=== PATIENT | female | born 1980 | race Caucasian/White ===

== ENCOUNTER 2017-10-25 19:41 | Emergency (ER) | payer OTHER ==
[~2017-10-25] VITALS: Ht 157.5 cm; Wt 81.3 kg
[2017-10-25 19:50] VITALS: Ht 157.5 cm; Wt 81.3 kg
[2017-10-25 21:44] LABS: ALBUMIN 3.5 g/dL (3.4-5.0); BILIRUBIN TOTAL 0.31 mg/dL (0.20-1.00); CALCIUM 8.6 mg/dL (8.5-10.1); CARBON DIOXIDE 32.5 mmol/L (21-32); TOTAL PROTEIN, SERUM 7.7 g/dL (6.4-8.2)
[2017-10-25 21:46] LABS: CREATININE SERUM 10.8 mg/dL (0.6-1.0)
[2017-10-25 21:48] LABS: BASOPHIL % 0.8 % (0-2); PLATELET COUNT 324 x10^3mcL (130-400)
[2017-10-25 21:50] LABS: RED CELL DISTRIBUTION WIDTH 18.3 % (11.5-14.5)
[2017-10-25 23:11] VITALS: BP 160/86
== END 2017-10-25 23:11 | disposition home or self-care (01) ==
LOC: ED 19:41
PROVIDERS: Emergency Medicine
DX: E11.22 Type 2 diabetes mellitus with diabetic chronic kidney disease (principal); N18.9 Chronic kidney disease, unspecified; K21.9 Gastro-esophageal reflux disease without esophagitis; Z88.8 Allergy status to other drugs, medicaments and biological substances
CPT/HCPCS: 83880; C9113; J2765

== ENCOUNTER 2017-11-07 14:29 | Inpatient (IN) | payer OTHER ==
[~2017-11-07] VITALS: Ht 157.5 cm; Wt 78.6 kg
[2017-11-07 15:13] VITALS: Ht 157.5 cm; Wt 78.6 kg
[2017-11-07 16:12] LABS: BASOPHIL % 0.6 % (0-2); PLATELET COUNT 288 x10^3mcL (130-400)
[2017-11-07 16:19] LABS: RED CELL DISTRIBUTION WIDTH 18.5 % (11.5-14.5)
[2017-11-07 16:32] LABS: BILIRUBIN TOTAL 0.4 mg/dL (0.20-1.00); CALCIUM 8.7 mg/dL (8.5-10.1); POTASSIUM SERUM 3.6 mmol/L (3.5-5.1)
[2017-11-07 16:34] LABS: CHOLESTEROL/HDL RATIO 2.5; CREATININE SERUM 8.6 mg/dL (0.6-1.0); TOTAL PROTEIN, SERUM 8.3 g/dL (6.4-8.2)
[2017-11-07 16:36] LABS: FREE T4 1.39 ng/dL (0.76-1.46); T4(THYROXINE) 12.1 ug/dL (4.7-13.3)
[2017-11-07 16:44] LABS: T3 TOTAL 0.89 ng/mL
[2017-11-07] MEDS ORDERED: LOSARTAN POTASS25 M1 (18:38)
[2017-11-07] MEDS ORDERED: DSS250 MG (18:38)
[2017-11-07] MEDS ORDERED: OSTERA TABLET1 EACH (18:38)
[2017-11-07] MEDS ORDERED: TOPROL XL25 MG PO (18:39)
[2017-11-07] MEDS ORDERED: ASPIR 8181 MG (18:39)
[2017-11-07] MEDS ORDERED: LASIX20 MG (18:39)
[2017-11-07] MEDS ORDERED: HYDRALAZINE HCL25 MG PO (18:40)
[2017-11-07] MEDS ORDERED: CALCIUM ACETAT667 M3 PO (18:40)
[2017-11-07] MEDS ORDERED: CHLORTHALIDONE25 MG PO (18:40)
[2017-11-07 18:41] LABS: MAGNESIUM 2.8 mg/dL (1.8-2.4); PHOSPHOROUS 5.2 mg/dL (2.5-4.9)
[2017-11-07 19:53] VITALS: BP 177/87
[2017-11-07] MEDS ORDERED: NIFEDIPINE ER90 M2 PO (22:01)
[2017-11-08 00:33] VITALS: BP 143/68
[2017-11-08 03:47] LABS: UA SPECIFIC GRAVITY 1.015 (1.005-1.035); microscopic required? YES; urine erythrocyte 3+ (NEGATIVE)
[2017-11-08 03:58] LABS: AMPHETAMINE QUAL UR NONE DETECTED (See below)
[2017-11-08 05:57] VITALS: BP 158/79
[2017-11-08 06:56] LABS: BASOPHIL % 0.9 % (0-2); PLATELET COUNT 284 x10^3mcL (130-400)
[2017-11-08 07:03] LABS: RED CELL DISTRIBUTION WIDTH 18.3 % (11.5-14.5)
[2017-11-08 07:08] LABS: MAGNESIUM 3.1 mg/dL (1.8-2.4); PHOSPHOROUS 5.9 mg/dL (2.5-4.9)
[2017-11-08 07:37] LABS: CALCIUM 8.1 mg/dL (8.5-10.1); CARBON DIOXIDE 26.7 mmol/L (21-32)
[2017-11-08 07:47] LABS: CREATININE SERUM 9.8 mg/dL (0.6-1.0)
[2017-11-08 13:06] VITALS: BP 164/75
[2017-11-08 17:09] VITALS: BP 105/59
[2017-11-08 20:12] VITALS: BP 151/77
[2017-11-09 05:14] VITALS: BP 172/77
[2017-11-09 06:41] LABS: BASOPHIL % 0.8 % (0-2); PLATELET COUNT 239 x10^3mcL (130-400)
[2017-11-09 06:47] LABS: RED CELL DISTRIBUTION WIDTH 17.9 % (11.5-14.5)
[2017-11-09 07:05] LABS: CALCIUM 7.8 mg/dL (8.5-10.1); CARBON DIOXIDE 24.7 mmol/L (21-32); MAGNESIUM 3.1 mg/dL (1.8-2.4); PHOSPHOROUS 7.1 mg/dL (2.5-4.9); POTASSIUM SERUM 4.5 mmol/L (3.5-5.1)
[2017-11-09 08:48] VITALS: BP 176/80
[2017-11-09 13:35] VITALS: BP 135/70
[2017-11-09 17:12] VITALS: BP 154/78
[2017-11-09 20:00] VITALS: BP 172/82
[2017-11-10 06:22] VITALS: BP 188/89
[2017-11-10 06:51] LABS: BASOPHIL % 0.9 % (0-2); PLATELET COUNT 265 x10^3mcL (130-400)
[2017-11-10 06:55] LABS: RED CELL DISTRIBUTION WIDTH 17.9 % (11.5-14.5)
[2017-11-10 07:04] LABS: CALCIUM 8.8 mg/dL (8.5-10.1); CARBON DIOXIDE 28.8 mmol/L (21-32); POTASSIUM SERUM 4.2 mmol/L (3.5-5.1)
[2017-11-10 07:08] LABS: CREATININE SERUM 8.9 mg/dL (0.6-1.0)
[2017-11-10 09:18] VITALS: BP 156/76
[2017-11-10 12:44] VITALS: BP 159/79
[2017-11-10 17:10] VITALS: BP 163/71
[2017-11-10 21:30] VITALS: BP 183/89
[2017-11-11 05:37] VITALS: BP 187/92
[2017-11-11 07:39] VITALS: BP 191/97
[2017-11-11 11:45] VITALS: BP 188/91
[2017-11-11 18:38] VITALS: BP 105/56
[2017-11-11 20:36] VITALS: BP 165/84
[2017-11-12 04:59] VITALS: BP 160/84
[2017-11-12 09:48] VITALS: BP 194/86
[2017-11-12 10:18] VITALS: BP 129/66
[2017-11-12] MEDS ORDERED: TRA100 PO (11:34)
[2017-11-12] MEDS ORDERED: APR50 PO (11:34)
[2017-11-12] MEDS ORDERED: NOR10T PO (11:35)
[2017-11-12] MEDS ORDERED: COZ50 PO (11:35)
[2017-11-12 12:05] VITALS: BP 129/66
[2017-11-12 12:52] VITALS: BP 124/70
== END 2017-11-12 14:09 | disposition home or self-care (01) | DRG 347 ==
LOC: ED 14:29 → DU 17:47 → MU 17:47 → DU 19:34 → MU 19:37 → DU 19:40
PROVIDERS: Family Medicine; Internal Medicine; Specialist
PROC: 5A1D70Z Performance of Urinary Filtration, Intermittent, Less than 6 Hours Per Day (ICD-10-PCS; principal; 2017-11-09)
PROC: 5A1D70Z Performance of Urinary Filtration, Intermittent, Less than 6 Hours Per Day (ICD-10-PCS; 2017-11-11)
DX: M48.56XA Collapsed vertebra, not elsewhere classified, lumbar region, initial encounter for fracture (principal); D68.69 Other thrombophilia; E11.22 Type 2 diabetes mellitus with diabetic chronic kidney disease; E11.621 Type 2 diabetes mellitus with foot ulcer; I12.0 Hypertensive chronic kidney disease with stage 5 chronic kidney disease or end stage renal disease; E83.39 Other disorders of phosphorus metabolism; E83.41 Hypermagnesemia; N18.6 End stage renal disease; E78.5 Hyperlipidemia, unspecified; H54.8 Legal blindness, as defined in USA; E78.00 Pure hypercholesterolemia, unspecified; E87.70 Fluid overload, unspecified; L97.529 Non-pressure chronic ulcer of other part of left foot with unspecified severity; L84 Corns and callosities; M20.5X2 Other deformities of toe(s) (acquired), left foot; M20.5X1 Other deformities of toe(s) (acquired), right foot; D63.1 Anemia in chronic kidney disease; I16.0 Hypertensive urgency; K57.90 Diverticulosis of intestine, part unspecified, without perforation or abscess without bleeding; R31.9 Hematuria, unspecified; Z99.2 Dependence on renal dialysis; Z79.82 Long term (current) use of aspirin; Z68.30 Body mass index [BMI] 30.0-30.9, adult; Z79.899 Other long term (current) drug therapy; Z88.8 Allergy status to other drugs, medicaments and biological substances; Z79.4 Long term (current) use of insulin
CPT/HCPCS: 72072; 83880; 84439; J0696; J0885-EC; J1815; J1885; J2270; J2405; J3010; J3490; J7030; Q0092; Q0162

== ENCOUNTER 2017-11-19 05:17 | Emergency (ER) | payer OTHER ==
[~2017-11-19] VITALS: Ht 157.5 cm; Wt 75.7 kg
[~2017-11-19 05:17] MED LIST: APR50 PO; ASPIR 8181 MG; CALCIUM ACETAT667 M3 PO; CHLORTHALIDONE25 MG PO; COZ50 PO; DSS250 MG; HYDRALAZINE HCL25 MG PO; LASIX20 MG; LOSARTAN POTASS25 M1; NIFEDIPINE ER90 M2 PO; NOR10T PO; OSTERA TABLET1 EACH; TOPROL XL25 MG PO; TRA100 PO
[2017-11-19 05:35] VITALS: Ht 157.5 cm; Wt 75.7 kg
[2017-11-19 07:23] LABS: PLATELET COUNT 257 x10^3mcL (130-400)
[2017-11-19 07:24] LABS: RED CELL DISTRIBUTION WIDTH 16.8 % (11.5-14.5)
[2017-11-19 07:51] LABS: ALBUMIN 3.6 g/dL (3.4-5.0); BILIRUBIN TOTAL 0.35 mg/dL (0.20-1.00); CALCIUM 9.5 mg/dL (8.5-10.1); CARBON DIOXIDE 28.5 mmol/L (21-32); POTASSIUM SERUM 4.2 mmol/L (3.5-5.1); TOTAL PROTEIN, SERUM 7.6 g/dL (6.4-8.2)
[2017-11-19 07:54] LABS: CREATININE SERUM 8.1 mg/dL (0.6-1.0)
[2017-11-19 08:39] VITALS: BP 158/89
== END 2017-11-19 10:01 | disposition home or self-care (01) ==
LOC: ED 05:17
PROVIDERS: Emergency Medicine
DX: R10.12 Left upper quadrant pain (principal); I12.9 Hypertensive chronic kidney disease with stage 1 through stage 4 chronic kidney disease, or unspecified chronic kidney disease; N18.9 Chronic kidney disease, unspecified; Z88.8 Allergy status to other drugs, medicaments and biological substances
CPT/HCPCS: 36415; J1885; Q0162

== ENCOUNTER 2018-01-09 17:06 | Inpatient (IN) | payer OTHER ==
[~2018-01-09] VITALS: Ht 157.5 cm; Wt 68.0 kg
[2018-01-09 17:26] VITALS: Ht 157.5 cm; Wt 68.0 kg
[2018-01-09 18:40] LABS: BASOPHIL % 0.7 % (0-2); PLATELET COUNT 257 x10^3mcL (130-400)
[2018-01-09 18:42] LABS: RED CELL DISTRIBUTION WIDTH 18.9 % (11.5-14.5)
[2018-01-09 18:51] LABS: BILIRUBIN TOTAL 0.4 mg/dL (0.20-1.00); CALCIUM 9.8 mg/dL (8.5-10.1); CARBON DIOXIDE 22.5 mmol/L (21-32); POTASSIUM SERUM 5.3 mmol/L (3.5-5.1); TOTAL PROTEIN, SERUM 8.2 g/dL (6.4-8.2)
[2018-01-09 18:55] LABS: CREATININE SERUM 10.8 mg/dL (0.6-1.0)
[2018-01-09 19:58] LABS: MAGNESIUM 2.7 mg/dL (1.8-2.4); PHOSPHOROUS 3.8 mg/dL (2.5-4.9)
[2018-01-09 19:59] LABS: CHOLESTEROL/HDL RATIO 3.3
[2018-01-09 20:03] LABS: T3 TOTAL 0.66 ng/mL
[2018-01-09 20:07] LABS: FREE T4 1.09 ng/dL (0.76-1.46); FREE THYROXINE INDEX 2.6 ug/dL (1.4-4.5)
[2018-01-09 21:16] VITALS: BP 201/92
[2018-01-09 23:32] VITALS: BP 183/81
[2018-01-10 05:20] VITALS: BP 197/95
[2018-01-10 06:27] LABS: BASOPHIL % 1.2 % (0-2); PLATELET COUNT 252 x10^3mcL (130-400)
[2018-01-10 06:40] LABS: CARBON DIOXIDE 26.6 mmol/L (21-32); MAGNESIUM 2.8 mg/dL (1.8-2.4); POTASSIUM SERUM 5.1 mmol/L (3.5-5.1)
[2018-01-10 06:54] LABS: CREATININE SERUM 11.6 mg/dL (0.6-1.0)
[2018-01-10 07:09] LABS: RED CELL DISTRIBUTION WIDTH 17.3 % (11.5-14.5)
[2018-01-10 08:49] VITALS: BP 214/92
[2018-01-10 12:08] VITALS: BP 223/104
[2018-01-10 15:30] VITALS: BP 194/89
[2018-01-10 20:55] VITALS: BP 184/88
[2018-01-11] VITALS (9 sets, daily range): BP systolic 147–197; BP diastolic 67–95
[2018-01-11 06:51] LABS: BASOPHIL % 0.9 % (0-2); PLATELET COUNT 255 x10^3mcL (130-400)
[2018-01-11 06:55] LABS: CALCIUM 8.8 mg/dL (8.5-10.1); CARBON DIOXIDE 26.2 mmol/L (21-32); MAGNESIUM 2.3 mg/dL (1.8-2.4); PHOSPHOROUS 4.9 mg/dL (2.5-4.9); POTASSIUM SERUM 4.3 mmol/L (3.5-5.1)
[2018-01-11 07:02] LABS: CREATININE SERUM 7.9 mg/dL (0.6-1.0)
[2018-01-11 07:06] LABS: RED CELL DISTRIBUTION WIDTH 19.4 % (11.5-14.5)
[2018-01-12] VITALS (7 sets, daily range): BP systolic 156–179; BP diastolic 73–104
[2018-01-12 06:03] LABS: BASOPHIL % 0.5 % (0-2); PLATELET COUNT 254 x10^3mcL (130-400)
[2018-01-12 06:33] LABS: CALCIUM 8.2 mg/dL (8.5-10.1); CARBON DIOXIDE 31.1 mmol/L (21-32)
[2018-01-12 06:35] LABS: CREATININE SERUM 5.3 mg/dL (0.6-1.0)
[2018-01-12 07:10] LABS: RED CELL DISTRIBUTION WIDTH 18.8 % (11.5-14.5)
[2018-01-13 05:37] VITALS: BP 165/79
[2018-01-13 08:55] VITALS: BP 186/85
[2018-01-13 15:53] VITALS: BP 151/71
[2018-01-13] MEDS ORDERED: TRA100 PO (16:22)
[2018-01-13] MEDS ORDERED: LIPI20 PO (16:22)
[2018-01-13] MEDS ORDERED: ADA30 PO (16:22)
[2018-01-13] MEDS ORDERED: CLINDAMYCIN HC300 MG PO (16:25)
[2018-01-13 17:56] VITALS: BP 151/71
== END 2018-01-13 17:50 | disposition home or self-care (01) | DRG 241 ==
LOC: ED 17:06 → MU 19:19 → DU 19:19
PROVIDERS: Emergency Medicine; Family Medicine; Internal Medicine; Internal Medicine Gastroenterology
PROC: 5A1D70Z Performance of Urinary Filtration, Intermittent, Less than 6 Hours Per Day (ICD-10-PCS; 2018-01-10)
PROC: 0DB68ZX Excision of Stomach, Via Natural or Artificial Opening Endoscopic, Diagnostic (ICD-10-PCS; 2018-01-11 07:30)
PROC: 5A1D70Z Performance of Urinary Filtration, Intermittent, Less than 6 Hours Per Day (ICD-10-PCS; principal; 2018-01-13)
DX: K29.00 Acute gastritis without bleeding (principal); N17.0 Acute kidney failure with tubular necrosis; I13.2 Hypertensive heart and chronic kidney disease with heart failure and with stage 5 chronic kidney disease, or end stage renal disease; E44.0 Moderate protein-calorie malnutrition; E83.41 Hypermagnesemia; E11.21 Type 2 diabetes mellitus with diabetic nephropathy; I27.20 Pulmonary hypertension, unspecified; E11.319 Type 2 diabetes mellitus with unspecified diabetic retinopathy without macular edema; I16.0 Hypertensive urgency; E11.22 Type 2 diabetes mellitus with diabetic chronic kidney disease; I12.0 Hypertensive chronic kidney disease with stage 5 chronic kidney disease or end stage renal disease; K29.80 Duodenitis without bleeding; N18.6 End stage renal disease; E87.5 Hyperkalemia; F41.9 Anxiety disorder, unspecified; E11.65 Type 2 diabetes mellitus with hyperglycemia; Z99.2 Dependence on renal dialysis; Z79.84 Long term (current) use of oral hypoglycemic drugs; E78.5 Hyperlipidemia, unspecified; L03.114 Cellulitis of left upper limb; R07.9 Chest pain, unspecified; I80.8 Phlebitis and thrombophlebitis of other sites; I16.1 Hypertensive emergency; E87.70 Fluid overload, unspecified; K59.09 Other constipation; G89.29 Other chronic pain; M54.5 Low back pain; D63.1 Anemia in chronic kidney disease; I50.9 Heart failure, unspecified; K29.70 Gastritis, unspecified, without bleeding; Z68.30 Body mass index [BMI] 30.0-30.9, adult
CPT/HCPCS: 43235; 82962; 83880; 84439; 97116-GP; 97530-GP; A4719; J0360; J1200; J1610; J1644; J1885; J2250; J2270; J2310; J2405; J2550; J2765; J3010; J3370; J3490; J7030; Q0092

== ENCOUNTER 2018-02-07 17:06 | Inpatient (IN) | payer OTHER ==
[~2018-02-07] VITALS: Ht 157.5 cm; Wt 78.2 kg
[~2018-02-07 17:06] MED LIST changes: +ADA30 PO; +CLINDAMYCIN HC300 MG PO; +LIPI20 PO
[2018-02-07 19:27] LABS: BILIRUBIN TOTAL 0.55 mg/dL (0.20-1.00); CARBON DIOXIDE 30.9 mmol/L (21-32); TOTAL PROTEIN, SERUM 7.7 g/dL (6.4-8.2)
[2018-02-07 19:47] LABS: CREATININE SERUM 11.6 mg/dL (0.6-1.0); POTASSIUM SERUM 6.1 mmol/L (3.5-5.1)
[2018-02-07 20:34] LABS: BASOPHIL % 0.7 % (0-2); PLATELET COUNT 223 x10^3mcL (130-400)
[2018-02-07 20:36] LABS: RED CELL DISTRIBUTION WIDTH 17.9 % (11.5-14.5)
[2018-02-07] MEDS ORDERED: ROC1I (21:43)
[2018-02-07] MEDS ORDERED: PROCARDIA XL90 MG PO (21:48)
[2018-02-07] MEDS ORDERED: CATAPRES0.1 MG PO (21:48)
[2018-02-07] MEDS ORDERED: LABETALOL HYDR300 MG PO (21:48)
[2018-02-07] MEDS ORDERED: REG5 PO (21:49)
[2018-02-07] MEDS ORDERED: LOSARTAN POTAS100 M1 PO (21:49)
[2018-02-07] MEDS ORDERED: COLACE100 MG PO (21:50)
[2018-02-07] MEDS ORDERED: PHOS PO (21:50)
[2018-02-07] MEDS ORDERED: NEU300 PO (21:50)
[2018-02-07] MEDS ORDERED: TRAZODONE50 M1 PO (21:51)
[2018-02-07 21:55] LABS: MAGNESIUM 2.5 mg/dL (1.8-2.4); PHOSPHOROUS 5.7 mg/dL (2.5-4.9)
[2018-02-07 22:01] LABS: T3 TOTAL 1.15 ng/mL
[2018-02-07 22:03] LABS: CHOLESTEROL/HDL RATIO 1.8
[2018-02-07 22:30] LABS: FREE T4 1.2 ng/dL (0.76-1.46); FREE THYROXINE INDEX 3.1 ug/dL (1.4-4.5); T4(THYROXINE) 8.5 ug/dL (4.7-13.3)
[2018-02-07 22:40] VITALS: BP 170/88
[2018-02-07 22:43] VITALS: Ht 157.5 cm; Wt 78.2 kg
[2018-02-08 00:31] VITALS: BP 167/85
[2018-02-08 05:52] VITALS: BP 162/79
[2018-02-08 07:08] LABS: CARBON DIOXIDE 30.6 mmol/L (21-32); POTASSIUM SERUM 5.5 mmol/L (3.5-5.1)
[2018-02-08 07:09] LABS: CREATININE SERUM 12.6 mg/dL (0.6-1.0)
[2018-02-08 07:22] LABS: BASOPHIL % 1.1 % (0-2); PLATELET COUNT 223 x10^3mcL (130-400)
[2018-02-08 09:17] VITALS: BP 154/77
[2018-02-08 15:52] VITALS: BP 179/87
[2018-02-08 21:24] VITALS: BP 196/88
[2018-02-09 03:18] VITALS: BP 188/92
[2018-02-09 05:11] VITALS: BP 167/85
[2018-02-09 06:21] LABS: BASOPHIL % 0.8 % (0-2); PLATELET COUNT 206 x10^3mcL (130-400)
[2018-02-09 06:35] LABS: RED CELL DISTRIBUTION WIDTH 17.6 % (11.5-14.5)
[2018-02-09 06:52] LABS: CALCIUM 8.7 mg/dL (8.5-10.1); CARBON DIOXIDE 30.7 mmol/L (21-32); MAGNESIUM 2.1 mg/dL (1.8-2.4); PHOSPHOROUS 6.1 mg/dL (2.5-4.9); POTASSIUM SERUM 4.7 mmol/L (3.5-5.1)
[2018-02-09 06:58] LABS: CREATININE SERUM 9.1 mg/dL (0.6-1.0)
[2018-02-09 09:40] VITALS: BP 188/89
[2018-02-09 10:56] VITALS: BP 163/77
[2018-02-09 17:19] VITALS: BP 172/84
[2018-02-09 21:25] VITALS: BP 148/85
[2018-02-10 06:03] VITALS: BP 167/80
[2018-02-10 07:01] LABS: BASOPHIL % 1.1 % (0-2); PLATELET COUNT 193 x10^3mcL (130-400)
[2018-02-10 07:05] LABS: RED CELL DISTRIBUTION WIDTH 17.3 % (11.5-14.5)
[2018-02-10 07:14] LABS: CALCIUM 8.4 mg/dL (8.5-10.1); CARBON DIOXIDE 30.8 mmol/L (21-32); MAGNESIUM 2.3 mg/dL (1.8-2.4); PHOSPHOROUS 7.2 mg/dL (2.5-4.9); POTASSIUM SERUM 5.3 mmol/L (3.5-5.1)
[2018-02-10 07:25] LABS: CREATININE SERUM 11.9 mg/dL (0.6-1.0)
[2018-02-10] MEDS ORDERED: PER5 PO (08:49)
[2018-02-10 08:59] VITALS: BP 173/82
[2018-02-10 10:22] VITALS: BP 165/83
[2018-02-10 13:43] VITALS: BP 171/88
[2018-02-10 14:02] VITALS: BP 140/72
[2018-02-10 17:30] VITALS: BP 134/72
== END 2018-02-10 20:15 | disposition home or self-care (01) | DRG 347 ==
LOC: ED 17:06 → MU 21:19 → DU 21:19 → MU 22:22 → DU 02-09 16:10
PROVIDERS: Emergency Medicine; Family Medicine; General Practice
PROC: 5A1D70Z Performance of Urinary Filtration, Intermittent, Less than 6 Hours Per Day (ICD-10-PCS; principal; 2018-02-08)
PROC: 5A1D70Z Performance of Urinary Filtration, Intermittent, Less than 6 Hours Per Day (ICD-10-PCS; 2018-02-10)
DX: M54.9 Dorsalgia, unspecified (principal); N17.0 Acute kidney failure with tubular necrosis; H54.8 Legal blindness, as defined in USA; E11.21 Type 2 diabetes mellitus with diabetic nephropathy; I12.0 Hypertensive chronic kidney disease with stage 5 chronic kidney disease or end stage renal disease; N18.6 End stage renal disease; E11.22 Type 2 diabetes mellitus with diabetic chronic kidney disease; E11.65 Type 2 diabetes mellitus with hyperglycemia; E83.41 Hypermagnesemia; E78.5 Hyperlipidemia, unspecified; E83.39 Other disorders of phosphorus metabolism; E87.5 Hyperkalemia; Z99.2 Dependence on renal dialysis; Z68.31 Body mass index [BMI] 31.0-31.9, adult; E78.00 Pure hypercholesterolemia, unspecified; I16.0 Hypertensive urgency; G89.29 Other chronic pain; D63.1 Anemia in chronic kidney disease; E11.319 Type 2 diabetes mellitus with unspecified diabetic retinopathy without macular edema; R07.89 Other chest pain
CPT/HCPCS: 82962; 83880; 84439; 97110-GP; 97116-GP; J0885-EC; J1644; J1815; J2270; J2405; J2550; J7030; Q0092

== ENCOUNTER 2018-08-19 14:04 | Emergency (ER) | payer OTHER ==
[~2018-08-19] VITALS: Ht 157.5 cm; Wt 73.0 kg
[~2018-08-19 14:04] MED LIST changes: +CATAPRES0.1 MG PO; +COLACE100 MG PO; +LABETALOL HYDR300 MG PO; +LOSARTAN POTAS100 M1 PO; +NEU300 PO; +PER5 PO; +PHOS PO; +PROCARDIA XL90 MG PO; +REG5 PO; +ROC1I; +TRAZODONE50 M1 PO
[2018-08-19 14:09] VITALS: Ht 157.5 cm; Wt 73.0 kg
[2018-08-19 17:16] VITALS: BP 187/92
== END 2018-08-19 17:17 | disposition home or self-care (01) ==
LOC: ED 14:04
DX: L03.114 Cellulitis of left upper limb (principal); E11.22 Type 2 diabetes mellitus with diabetic chronic kidney disease; I12.9 Hypertensive chronic kidney disease with stage 1 through stage 4 chronic kidney disease, or unspecified chronic kidney disease; N18.9 Chronic kidney disease, unspecified; Z98.890 Other specified postprocedural states
CPT/HCPCS: J2270; J3490; Q0162

== ENCOUNTER 2018-08-21 16:05 | Inpatient (IN) | payer OTHER ==
[~2018-08-21] VITALS: Ht 157.5 cm; Wt 74.4 kg
[2018-08-21 16:23] VITALS: Ht 157.5 cm; Wt 74.4 kg
[2018-08-21 17:49] LABS: BASOPHIL % 0.8 % (0-2); PLATELET COUNT 238 x10^3mcL (130-400)
[2018-08-21 17:52] LABS: RED CELL DISTRIBUTION WIDTH 17.4 % (11.5-14.5)
[2018-08-21 18:02] LABS: ALBUMIN 4.1 g/dL (3.4-5.0); BILIRUBIN TOTAL 0.5 mg/dL (0.20-1.00); CALCIUM 8.7 mg/dL (8.5-10.1); CARBON DIOXIDE 27.8 mmol/L (21-32); TOTAL PROTEIN, SERUM 7.9 g/dL (6.4-8.2)
[2018-08-21 18:05] LABS: CREATININE SERUM 11.7 mg/dL (0.6-1.0)
[2018-08-21 19:23] LABS: MAGNESIUM 2.7 mg/dL (1.8-2.4); PHOSPHOROUS 6.6 mg/dL (2.5-4.9)
[2018-08-21 19:25] LABS: CHOLESTEROL/HDL RATIO 1.9
[2018-08-21 20:26] VITALS: BP 196/88
[2018-08-21 21:15] VITALS: BP 195/77
[2018-08-22] VITALS (7 sets, daily range): BP systolic 131–192; BP diastolic 66–94
[2018-08-22 07:02] LABS: BASOPHIL % 0.8 % (0-2); PLATELET COUNT 222 x10^3mcL (130-400)
[2018-08-22 07:34] LABS: CALCIUM 9.1 mg/dL (8.5-10.1); CARBON DIOXIDE 27.1 mmol/L (21-32); PHOSPHOROUS 4.8 mg/dL (2.5-4.9); POTASSIUM SERUM 4.5 mmol/L (3.5-5.1)
[2018-08-22 07:38] LABS: CREATININE SERUM 6.9 mg/dL (0.6-1.0)
[2018-08-23 05:46] VITALS: BP 135/66
[2018-08-23 06:43] LABS: CALCIUM 8.6 mg/dL (8.5-10.1); CARBON DIOXIDE 28.1 mmol/L (21-32); POTASSIUM SERUM 5.5 mmol/L (3.5-5.1)
[2018-08-23 06:50] LABS: CREATININE SERUM 9.9 mg/dL (0.6-1.0)
[2018-08-23 07:23] LABS: BASOPHIL % 0.6 % (0-2); PLATELET COUNT 227 x10^3mcL (130-400); RED CELL DISTRIBUTION WIDTH 17.8 % (11.5-14.5)
[2018-08-23 08:31] VITALS: BP 148/72
[2018-08-23 09:25] VITALS: BP 148/72
[2018-08-23 14:01] VITALS: BP 147/69
[2018-08-23 17:15] VITALS: BP 156/75
[2018-08-23 17:39] VITALS: BP 156/75
== END 2018-08-23 21:09 | disposition home or self-care (01) | DRG 425 ==
LOC: ED 16:05 → DU 18:42
PROVIDERS: Emergency Medicine; ADMIT Family Medicine
PROC: 5A1D70Z Performance of Urinary Filtration, Intermittent, Less than 6 Hours Per Day (ICD-10-PCS; principal; 2018-08-21)
PROC: 5A1D70Z Performance of Urinary Filtration, Intermittent, Less than 6 Hours Per Day (ICD-10-PCS; 2018-08-23)
DX: E87.5 Hyperkalemia (principal); E10.22 Type 1 diabetes mellitus with diabetic chronic kidney disease; I12.0 Hypertensive chronic kidney disease with stage 5 chronic kidney disease or end stage renal disease; E10.65 Type 1 diabetes mellitus with hyperglycemia; E10.319 Type 1 diabetes mellitus with unspecified diabetic retinopathy without macular edema; E83.39 Other disorders of phosphorus metabolism; N18.6 End stage renal disease; E83.41 Hypermagnesemia; D63.1 Anemia in chronic kidney disease; I16.0 Hypertensive urgency; H54.8 Legal blindness, as defined in USA; Z99.2 Dependence on renal dialysis; Z68.29 Body mass index [BMI] 29.0-29.9, adult; Z88.6 Allergy status to analgesic agent; Z88.8 Allergy status to other drugs, medicaments and biological substances; E78.00 Pure hypercholesterolemia, unspecified
CPT/HCPCS: 82962; B4164; J0360; J1644; J1815; J2270; J2405; J3490; J7030; J7040; J7613; Q0092

== ENCOUNTER 2018-10-09 11:57 | Emergency (ER) | payer OTHER ==
[~2018-10-09] VITALS: Ht 157.5 cm; Wt 77.1 kg
[~2018-10-09 11:57] MED LIST changes: +LABETALOL HYDR200 M1; -LABETALOL HYDR300 MG PO
[2018-10-09 12:12] VITALS: Ht 157.5 cm; Wt 77.1 kg
[2018-10-09 14:15] LABS: BASOPHIL % 1.1 % (0-2); PLATELET COUNT 192 x10^3mcL (130-400)
[2018-10-09 14:16] LABS: RED CELL DISTRIBUTION WIDTH 16.4 % (11.5-14.5)
[2018-10-09 14:29] LABS: ALBUMIN 3.7 g/dL (3.4-5.0); BILIRUBIN TOTAL 0.4 mg/dL (0.20-1.00); CALCIUM 8.6 mg/dL (8.5-10.1); CARBON DIOXIDE 31.8 mmol/L (21-32); CHOLESTEROL/HDL RATIO 2.3; TOTAL PROTEIN, SERUM 7.2 g/dL (6.4-8.2)
[2018-10-09 14:39] LABS: T3 TOTAL 0.76 ng/mL
[2018-10-09 15:01] VITALS: BP 120/67
[2018-10-09 15:13] LABS: FREE T4 1.23 ng/dL (0.76-1.46); FREE THYROXINE INDEX 1.7 ug/dL (1.4-4.5)
== END 2018-10-09 15:53 | disposition home or self-care (01) ==
LOC: ED 11:57
PROVIDERS: Specialist
DX: R20.2 Paresthesia of skin (principal); F41.9 Anxiety disorder, unspecified; E11.22 Type 2 diabetes mellitus with diabetic chronic kidney disease; I12.9 Hypertensive chronic kidney disease with stage 1 through stage 4 chronic kidney disease, or unspecified chronic kidney disease; N18.9 Chronic kidney disease, unspecified; E87.6 Hypokalemia; M25.512 Pain in left shoulder; M25.511 Pain in right shoulder
CPT/HCPCS: 83880; 84439; J1815; J1885; J3490; Q0092

== ENCOUNTER 2019-01-07 10:19 | Inpatient (IN) | payer OTHER ==
[~2019-01-07] VITALS: Ht 157.5 cm; Wt 80.3 kg
[2019-01-07 10:24] VITALS: Ht 157.5 cm; Wt 80.3 kg
[2019-01-07 11:19] LABS: BASOPHIL % 0.9 % (0-2); PLATELET COUNT 181 x10^3mcL (130-400)
[2019-01-07 11:47] LABS: ALBUMIN 4.3 g/dL (3.4-5.0); BILIRUBIN TOTAL 0.36 mg/dL (0.20-1.00); CARBON DIOXIDE 32.6 mmol/L (21-32)
[2019-01-07 11:52] LABS: CALCIUM 9.4 mg/dL (8.5-10.1)
[2019-01-07 11:58] LABS: CREATININE SERUM 8.9 mg/dL (0.6-1.0); TOTAL PROTEIN, SERUM 8.4 g/dL (6.4-8.2)
[2019-01-07 13:20] LABS: MAGNESIUM 2.6 mg/dL (1.8-2.4); PHOSPHOROUS 4.7 mg/dL (2.5-4.9)
[2019-01-07 13:46] VITALS: BP 185/86
[2019-01-07 15:56] VITALS: BP 145/87
[2019-01-07 17:06] VITALS: BP 154/77
[2019-01-07] MEDS ORDERED: LORAZEPAM1 MG PO (19:56)
[2019-01-07 20:17] VITALS: BP 177/82
[2019-01-08] VITALS (8 sets, daily range): BP systolic 108–176; BP diastolic 64–83
[2019-01-08 07:14] LABS: BASOPHIL % 0.8 % (0-2); PLATELET COUNT 175 x10^3mcL (130-400)
[2019-01-08 07:17] LABS: RED CELL DISTRIBUTION WIDTH 15.2 % (11.5-14.5)
[2019-01-08 07:24] LABS: CALCIUM 8.3 mg/dL (8.5-10.1); CARBON DIOXIDE 30.5 mmol/L (21-32)
[2019-01-08 07:31] LABS: POTASSIUM SERUM 5.7 mmol/L (3.5-5.1)
[2019-01-09 05:40] VITALS: BP 140/64
[2019-01-09 07:17] LABS: BASOPHIL % 0.7 % (0-2); CALCIUM 8.2 mg/dL (8.5-10.1); CARBON DIOXIDE 28.1 mmol/L (21-32); MAGNESIUM 2.7 mg/dL (1.8-2.4); PHOSPHOROUS 7.7 mg/dL (2.5-4.9); PLATELET COUNT 163 x10^3mcL (130-400)
[2019-01-09 07:22] LABS: CREATININE SERUM 13.1 mg/dL (0.6-1.0); RED CELL DISTRIBUTION WIDTH 14.7 % (11.5-14.5)
[2019-01-09 08:46] VITALS: BP 147/76
[2019-01-09 09:02] VITALS: BP 147/76
== END 2019-01-09 10:12 | disposition home or self-care (01) | DRG 425 ==
LOC: ED 10:19 → DU 12:44
PROVIDERS: Emergency Medicine; ADMIT General Practice
PROC: 5A1D70Z Performance of Urinary Filtration, Intermittent, Less than 6 Hours Per Day (ICD-10-PCS; principal; 2019-01-07)
DX: E87.5 Hyperkalemia (principal); E11.21 Type 2 diabetes mellitus with diabetic nephropathy; K31.84 Gastroparesis; E83.41 Hypermagnesemia; E11.319 Type 2 diabetes mellitus with unspecified diabetic retinopathy without macular edema; E87.2 Acidosis; I12.0 Hypertensive chronic kidney disease with stage 5 chronic kidney disease or end stage renal disease; E78.00 Pure hypercholesterolemia, unspecified; I16.0 Hypertensive urgency; D63.1 Anemia in chronic kidney disease; E78.5 Hyperlipidemia, unspecified; H54.8 Legal blindness, as defined in USA; E11.22 Type 2 diabetes mellitus with diabetic chronic kidney disease; E11.65 Type 2 diabetes mellitus with hyperglycemia; N18.6 End stage renal disease; Z99.2 Dependence on renal dialysis; Z68.30 Body mass index [BMI] 30.0-30.9, adult; Z79.84 Long term (current) use of oral hypoglycemic drugs; Z88.5 Allergy status to narcotic agent; Z88.8 Allergy status to other drugs, medicaments and biological substances
CPT/HCPCS: 82962; G0378; J1815; J2405; J3490; J7030; Q0092

== ENCOUNTER 2019-01-30 12:39 | Inpatient (IN) | payer OTHER ==
[~2019-01-30] VITALS: Ht 157.5 cm; Wt 79.8 kg
[~2019-01-30 12:39] MED LIST changes: +LORAZEPAM1 MG PO
[2019-01-30 13:08] VITALS: Ht 157.5 cm; Wt 79.8 kg
[2019-01-30 15:03] LABS: BASOPHIL % 0.3 % (0-2); PLATELET COUNT 243 x10^3mcL (130-400)
[2019-01-30 15:07] LABS: RED CELL DISTRIBUTION WIDTH 15.1 % (11.5-14.5)
[2019-01-30 16:12] LABS: ALBUMIN 3.8 g/dL (3.4-5.0); BILIRUBIN TOTAL 0.5 mg/dL (0.20-1.00); CALCIUM 8.3 mg/dL (8.5-10.1); CARBON DIOXIDE 29.8 mmol/L (21-32); T4(THYROXINE) 4.8 ug/dL (4.7-13.3); TOTAL PROTEIN, SERUM 7.5 g/dL (6.4-8.2)
[2019-01-30 16:18] LABS: CREATININE SERUM 11.3 mg/dL (0.6-1.0); POTASSIUM SERUM 6.1 mmol/L (3.5-5.1)
[2019-01-30 22:16] VITALS: BP 141/75
[2019-01-31 06:12] LABS: BASOPHIL % 0.4 % (0-2); PLATELET COUNT 191 x10^3mcL (130-400)
[2019-01-31 06:14] VITALS: BP 149/68
[2019-01-31 06:45] LABS: CALCIUM 7.4 mg/dL (8.5-10.1); CARBON DIOXIDE 28.4 mmol/L (21-32); MAGNESIUM 2.5 mg/dL (1.8-2.4); PHOSPHOROUS 3.7 mg/dL (2.5-4.9)
[2019-01-31 06:51] LABS: RED CELL DISTRIBUTION WIDTH 15.6 % (11.5-14.5)
[2019-01-31 07:25] LABS: CREATININE SERUM 12.9 mg/dL (0.6-1.0); POTASSIUM SERUM 5.6 mmol/L (3.5-5.1)
[2019-01-31 08:05] VITALS: BP 155/76
[2019-01-31 11:51] VITALS: BP 149/68
[2019-01-31 13:01] VITALS: BP 149/68
[2019-01-31] MEDS ORDERED: IMITREX50 MG PO (15:43)
[2019-01-31 16:23] VITALS: BP 156/68
[2019-01-31 20:53] VITALS: BP 148/65
[2019-01-31 23:48] LABS: BASOPHIL % 0.4 % (0-2); PLATELET COUNT 199 x10^3mcL (130-400); RED CELL DISTRIBUTION WIDTH 15.7 % (11.5-14.5)
[2019-02-01 00:06] LABS: CALCIUM 7.9 mg/dL (8.5-10.1); CARBON DIOXIDE 33.4 mmol/L (21-32); POTASSIUM SERUM 3.9 mmol/L (3.5-5.1)
[2019-02-01 00:26] LABS: CREATININE SERUM 8.4 mg/dL (0.6-1.0)
[2019-02-01 05:50] VITALS: BP 141/68
[2019-02-01 08:12] VITALS: BP 137/74
[2019-02-01 08:33] VITALS: BP 143/76
[2019-02-01 12:02] VITALS: BP 150/69
[2019-02-01 14:39] VITALS: BP 150/69
[2019-02-01] MEDS ORDERED: IMITREX50 MG PO (15:27)
== END 2019-02-01 16:14 | disposition home or self-care (01) | DRG 249 ==
LOC: ED 12:39 → DU 16:57
PROVIDERS: Emergency Medicine; General Practice; ADMIT Internal Medicine
PROC: 5A1D70Z Performance of Urinary Filtration, Intermittent, Less than 6 Hours Per Day (ICD-10-PCS; principal; 2019-01-31)
DX: K52.9 Noninfective gastroenteritis and colitis, unspecified (principal); E11.22 Type 2 diabetes mellitus with diabetic chronic kidney disease; E11.40 Type 2 diabetes mellitus with diabetic neuropathy, unspecified; F41.9 Anxiety disorder, unspecified; I12.0 Hypertensive chronic kidney disease with stage 5 chronic kidney disease or end stage renal disease; E11.65 Type 2 diabetes mellitus with hyperglycemia; E87.5 Hyperkalemia; N18.6 End stage renal disease; I16.0 Hypertensive urgency; G47.00 Insomnia, unspecified; E78.5 Hyperlipidemia, unspecified; H54.8 Legal blindness, as defined in USA; D64.9 Anemia, unspecified; G43.909 Migraine, unspecified, not intractable, without status migrainosus; Z99.2 Dependence on renal dialysis; Z68.31 Body mass index [BMI] 31.0-31.9, adult; Z88.6 Allergy status to analgesic agent; Z88.8 Allergy status to other drugs, medicaments and biological substances; Z79.4 Long term (current) use of insulin
CPT/HCPCS: 82962; 87804; G0378; J0360; J0885-EC; J1815; J2270; J3370; J3490; J7030; Q0092

== ENCOUNTER 2020-03-16 16:57 | Emergency (ER) | payer OTHER ==
[~2020-03-16] VITALS: Ht 157.5 cm; Wt 113.4 kg
[~2020-03-16 16:57] MED LIST changes: +IMITREX50 MG PO
[2020-03-16 17:33] VITALS: BP 162/65; Ht 157.5 cm; Wt 113.4 kg
== END 2020-03-16 19:18 | disposition home or self-care (01) ==
LOC: ED 16:57
DX: S91.112A Laceration without foreign body of left great toe without damage to nail, initial encounter (principal); I10 Essential (primary) hypertension; E11.9 Type 2 diabetes mellitus without complications; E78.00 Pure hypercholesterolemia, unspecified; Z86.2 Personal history of diseases of the blood and blood-forming organs and certain disorders involving the immune mechanism; Z99.2 Dependence on renal dialysis; Z88.5 Allergy status to narcotic agent; W45.8XXA Other foreign body or object entering through skin, initial encounter; Y93.89 Activity, other specified; Y92.89 Other specified places as the place of occurrence of the external cause; Y99.8 Other external cause status
CPT/HCPCS: 82962